=== PATIENT | male | born 1955 | race Caucasian/White ===

== ENCOUNTER → 2016-08-25 | Outpatient (CLI) | payer MEDICARE ==
[~2016-08-25] MED LIST: FENTANYL PF 100 MCG/2ML ONE; MIDAZOLAM 1 MG/ML, 5ML ONE
== END | disposition home or self-care (01) ==
LOC: RAD 09:02
PROVIDERS: ATTEND Physical Medicine & Rehabilitation Pain Medicine
DX: M51.36 Other intervertebral disc degeneration, lumbar region (principal); M12.88 Other specific arthropathies, not elsewhere classified, other specified site; M54.16 Radiculopathy, lumbar region; M48.07 Spinal stenosis, lumbosacral region; N26.1 Atrophy of kidney (terminal)
CPT/HCPCS: 72148; J2250; J3010

== ENCOUNTER → 2016-09-16 | Outpatient (CLI) | payer MEDICARE | END | disposition home or self-care (01) | LOC: RAD 13:15 | PROVIDERS: ATTEND Psychiatry & Neurology Neurology | DX: M50.221 Other cervical disc displacement at C4-C5 level (principal); M50.222 Other cervical disc displacement at C5-C6 level; M50.223 Other cervical disc displacement at C6-C7 level; M50.30 Other cervical disc degeneration, unspecified cervical region; M48.02 Spinal stenosis, cervical region; M47.892 Other spondylosis, cervical region; M25.78 Osteophyte, vertebrae; M54.12 Radiculopathy, cervical region | CPT/HCPCS: 72141; 99156; 99157 ==

== ENCOUNTER 2018-04-04 10:10 | Day surgery (SDC) | payer MEDICARE ==
[2018-04-02 12:07] LABS: BASOPHILS # (AUTO) 0.03 x10^3/uL (0-0.1); BASOPHILS % (AUTO) 1 % (0-1); EOSINOPHILS # (AUTO) 0.23 x10^3/uL (0-0.4); EOSINOPHILS % (AUTO) 5 % (1-7); LYMPHOCYTES # (AUTO) 1.73 x10^3/uL (1-3.4); LYMPHOCYTES % (AUTO) 34 % (22-44); MD NO; MEAN CORPUSCULAR HEMOGLOBIN 33.9 pg (27.5-34.5); MEAN CORPUSCULAR HGB CONC 34.1 g/dL (33.2-36.2); MEAN CORPUSCULAR VOLUME 99.4 fL (81-97); MEAN PLATELET VOLUME 8.4 fL (7.4-10.4); MONOCYTES # (AUTO) 0.67 x10^3/uL (0.2-0.8); MONOCYTES % (AUTO) 13 % (2-9); NEUTROPHILS # (AUTO) 2.36 x10^3/uL (1.8-6.8); NEUTROPHILS % (AUTO) 47 % (42-75); PLATELET COUNT 217 x10^3/uL (130-400); RED BLOOD COUNT 4.34 x10^6/uL (4.38-5.82); RED CELL DISTRIBUTION WIDTH 12.8 % (9.4-14.8)
[2018-04-02 12:07] LABS: MICROSCOPIC NOT IND
[2018-04-02 12:18] LABS: ALANINE AMINOTRANSFERASE 45 U/L (12-78); ALBUMIN 3.9 g/dL (3.4-5.0); ANION GAP 7 mmol/L (5-15); CALCIUM 9.4 mg/dL (8.5-10.1); CHLORIDE 106 mmol/L (98-107); CREATININE 1.54 mg/dL (0.7-1.3)
[2018-04-02 12:20] LABS: ALKALINE PHOSPHATASE 48 U/L (45-117); BILIRUBIN,TOTAL 0.5 mg/dL (0.2-1.0); TOTAL PROTEIN 7.1 g/dL (6.4-8.2)
[~2018-04-04] VITALS: Ht 182.9 cm; Wt 89.0 kg
[~2018-04-04 10:10] MED LIST changes: +ACYC-114 PO; +ALLO300T PO; +AMLO1CAP15 PO; +APIX5TAB PO; +BUPIVACAINE/PF-EPI 0.5% 1:200K ONE; +CYCL-259 PO; +DEXAMETHASONE 4 MG/ML, 1ML ONE; +FENO135C4 PO; +LIDOCAINE-MPF 2% ,5ML ONE; +MIDAZOLAM 1 MG/ML, 2ML ONE; -MIDAZOLAM 1 MG/ML, 5ML ONE; +PROPOFOL 10 MG/ML, 20ML ONE; +SUCCINYLCHOLINE 20 MG/ML, 10ML ONE; +TRAM300T15 PO
[2018-04-04] MEDS ORDERED: LACTATED RINGERS 1,000 ML IV SCH (10:33)
[2018-04-04 10:59] VITALS: BP 142/88
[2018-04-04] MEDS ORDERED: BUPIVACAINE/PF 0.5% ONE (11:22)
[2018-04-04] MEDS ORDERED: CEFAZOLIN 1,000 MG ONE ×2 (12:05)
[2018-04-04] MEDS ORDERED: FENTANYL PF 100 MCG/2ML ONE ×2 (12:20→13:14)
[2018-04-04] MEDS ORDERED: ACETAMINOPHEN 325 MG TABLET PO PRN (12:30)
[2018-04-04] MEDS ORDERED: LABETALOL 5MG/ML, 20ML IV PRN (12:30)
[2018-04-04] MEDS ORDERED: METOPROLOL 1 MG/ML, 5ML IV PRN (12:30)
[2018-04-04] MEDS ORDERED: MEPERIDINE/PF 25MG/0.5ML IVPush PRN (12:30)
[2018-04-04] MEDS ORDERED: hydrALAzine 20 MG/ML, 1ML IV PRN (12:30)
[2018-04-04] MEDS ORDERED: METOCLOPRAMIDE 5 MG/ML, 2ML IV PRN (12:30)
[2018-04-04] MEDS ORDERED: DIAZEPAM 5 MG/ML, 2ML IVPush PRN (12:30)
[2018-04-04] MEDS: FENTANYL PF 100 MCG/2ML IV PRN ×2 (13:20→13:38)
[2018-04-04] MEDS ORDERED: HYDROmorphone 2 MG/ML, 1ML ONE (13:49)
[2018-04-04] MEDS: HYDROmorphone 2 MG/ML, 1ML IVPush PRN ×4 (13:51→14:24)
[2018-04-04] MEDS ORDERED: HYDROmorphone 2MG TABLET PO PRN (14:00)
== END 2018-04-04 16:40 | disposition home or self-care (01) ==
LOC: OUT 10:10
PROVIDERS: ATTEND Urology
DX: N43.2 Other hydrocele (principal); I10 Essential (primary) hypertension; M10.9 Gout, unspecified; E78.5 Hyperlipidemia, unspecified; Z72.89 Other problems related to lifestyle; Z87.891 Personal history of nicotine dependence; Z79.899 Other long term (current) drug therapy; Z88.8 Allergy status to other drugs, medicaments and biological substances; Z86.718 Personal history of other venous thrombosis and embolism
CPT/HCPCS: 36415; 55040; 80053; 81003; 85025; 87086; 93005; J0330; J0690; J1100; J1170; J2250; J2704; J3010; J3490; J7120

== ENCOUNTER → 2018-04-25 | Outpatient (CLI) | payer MEDICARE ==
[~2018-04-25] MED LIST changes: -BUPIVACAINE/PF-EPI 0.5% 1:200K ONE; -DEXAMETHASONE 4 MG/ML, 1ML ONE; -FENTANYL PF 100 MCG/2ML ONE; -LIDOCAINE-MPF 2% ,5ML ONE; -MIDAZOLAM 1 MG/ML, 2ML ONE; -PROPOFOL 10 MG/ML, 20ML ONE; +REGADENOSON 0.4 MG/5 ML SYRINGE ONE; -SUCCINYLCHOLINE 20 MG/ML, 10ML ONE
== END | disposition home or self-care (01) ==
LOC: CFH 06:54
PROVIDERS: ATTEND Internal Medicine Cardiovascular Disease
DX: I10 Essential (primary) hypertension (principal); R55 Syncope and collapse
CPT/HCPCS: 78452; 93017; 93306; A9502; J2785

== ENCOUNTER 2019-05-31 19:23 | Inpatient (IN) | payer SELFPAY ==
[~2019-05-31] VITALS: Ht 182.9 cm; Wt 86.8 kg
[~2019-05-31 19:23] MED LIST changes: -AMLO1CAP15 PO; +AMLO1CAP54 PO; -REGADENOSON 0.4 MG/5 ML SYRINGE ONE
--- NOTE | 2019-05-31 19:25 | NUR ---
pg code cardiac @1923 pg cardiology @192
--- NOTE | 2019-05-31 19:26 | NUR ---
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
[2019-05-31] MEDS ORDERED: BIVALIRUDIN 250 MG ONE ×2 (19:39→19:45)
[2019-05-31] MEDS ORDERED: LIDOCAINE 2%, 20ML ONE (19:39)
[2019-05-31] MEDS ORDERED: HEPARIN 1,000 UNITS/ML, 10ML ONE (19:39)
[2019-05-31] MEDS ORDERED: NITROGLYCERIN 5 MG/ML, 10ML ONE (19:39)
[2019-05-31] MEDS ORDERED: VERAPAMIL 2.5 MG/ML, 2ML ONE (19:39)
[2019-05-31] MEDS ORDERED: FENTANYL PF 100 MCG/2ML ONE ×2 (19:39→19:52)
[2019-05-31] MEDS ORDERED: TICAGRELOR 90 MG TABLET ONE (19:39)
[2019-05-31] MEDS ORDERED: MIDAZOLAM 1 MG/ML, 5ML ONE (19:39)
[2019-05-31] MEDS ORDERED: MORPHINE SULFATE 4 MG/ML, 1ML ONE (19:40)
[2019-05-31 19:42] LABS: BASOPHILS # (AUTO) 0.03 x10^3/uL (0-0.1); BASOPHILS % (AUTO) 0 % (0-1); EOSINOPHILS # (AUTO) 0.19 x10^3/uL (0-0.4); EOSINOPHILS % (AUTO) 3 % (1-7); LYMPHOCYTES # (AUTO) 2.72 x10^3/uL (1-3.4); LYMPHOCYTES % (AUTO) 38 % (22-44); MD NO; MEAN CORPUSCULAR HEMOGLOBIN 34.1 pg (27.5-34.5); MEAN CORPUSCULAR VOLUME 100.2 fL (81-97); MEAN PLATELET VOLUME 8.3 fL (7.4-10.4); MONOCYTES # (AUTO) 0.77 x10^3/uL (0.2-0.8); MONOCYTES % (AUTO) 11 % (2-9); NEUTROPHILS # (AUTO) 3.47 x10^3/uL (1.8-6.8); NEUTROPHILS % (AUTO) 48 % (42-75); PLATELET COUNT 183 x10^3/uL (130-400); RED BLOOD COUNT 4.13 x10^6/uL (4.38-5.82); RED CELL DISTRIBUTION WIDTH 13.5 % (9.4-14.8)
--- NOTE | 2019-05-31 19:46 | NUR ---
MORPHINE 4MG, NTG 0.[address] FREY ORDER. METOPROLOL 5MG IV GIVEN PER DR ZUNIGA.
[2019-05-31 19:47] LABS: INTERNATIONAL NORMALIZED RATIO 0.99 (0.93-1.1); PROTHROMBIN TIME 10.5 Seconds (9.6-11.5)
[2019-05-31 19:52] LABS: TROPONIN I < 0.015 ng/mL (0.000-0.045)
[2019-05-31] MEDS ORDERED: MIDAZOLAM 1 MG/ML, 2ML ONE (19:52)
--- NOTE | 2019-05-31 19:53 | NUR ---
REPORT TO GURMEET ZAPIEN AND EMT TO TRANSPORT.
[2019-05-31] MEDS ORDERED: hydrALAzine 20 MG/ML, 1ML ONE (20:21)
[2019-05-31] MEDS ORDERED: morphine SULFATE 10 MG/ML, 1ML IV PRN (20:30)
[2019-05-31] MEDS ORDERED: ZOLPIDEM 5MG TABLET PO PRN (20:30)
[2019-05-31] MEDS ORDERED: LISINOPRIL 10 MG TABLET PO ONE (20:30)
[2019-05-31] MEDS ORDERED: ONDANSETRON 2MG/ML, 2ML IV PRN (20:30)
[2019-05-31] MEDS ORDERED: LABETALOL 5MG/ML, 20ML IVPush PRN (20:30)
[2019-05-31] MEDS ORDERED: NITROGLYCERIN SINGLE TAB 0.4 MG SL PRN (20:30)
[2019-05-31] MEDS ORDERED: CARVEDILOL 6.25 MG TABLET PO SCH (21:00)
[2019-05-31] MEDS: SODIUM CHLORIDE FLUSH 10ML SYR IVF SCH (21:00)
[2019-05-31] MEDS: ATORVASTATIN 10 MG TABLET PO SCH (21:33)
[2019-05-31] MEDS: CARVEDILOL 6.25 MG TABLET PO SCH (21:37)
[2019-05-31 21:52] LABS: ANION GAP 9 mmol/L (5-15); CALCIUM 8.4 mg/dL (8.5-10.1); CHLORIDE 108 mmol/L (98-107); CHOLESTEROL, TOTAL 135 mg/dL (140-239); CREATININE 1.23 mg/dL (0.7-1.3); TRIGLYCERIDES 121 mg/dL (50-200); VLDL CHOLESTEROL 24 mg/dL (0-25)
[2019-05-31 21:57] LABS: HDL CHOL % 33 % (26-37); HDL CHOLESTEROL (DIRECT) 45 mg/dL (40-60); LDL CHOLESTEROL,CALCULATED 66 mg/dL (54-169); LDL/HDL RATIO 1.5 (0.5-3.0); TROPONIN I 0.535 ng/mL (0.000-0.045)
[2019-05-31] MEDS ORDERED: AMIODARONE 150 MG in DEXTROSE 5% 100 ML IV ONE ×2 (22:30→23:30)
[2019-05-31] MEDS: hydrALAzine 20 MG/ML, 1ML IV PRN (22:40)
[2019-05-31] MEDS ORDERED: FILTER 0.22 MICRON IV ONE (23:00)
[2019-05-31] MEDS ORDERED: RIVAROXABAN 20 MG TABLET PO SCH (23:10)
[2019-05-31 23:43] VITALS: BP 177/103
[2019-06-01] VITALS (7 sets, daily range): BP systolic 138–177; BP diastolic 82–108
[2019-06-01 00:51] LABS: TROPONIN I 0.924 ng/mL (0.000-0.045)
[2019-06-01] MEDS: hydrALAzine 20 MG/ML, 1ML IV PRN ×2 (01:25→05:24)
[2019-06-01] MEDS ORDERED: LABETALOL 20 MG/4 ML IVPush PRN (02:30)
[2019-06-01] MEDS ORDERED: HEPARIN 5,000 UNITS/ML, 1ML SQ SCH (03:00)
[2019-06-01] MEDS: CARVEDILOL 6.25 MG TABLET PO SCH ×2 (06:13→22:50)
[2019-06-01] MEDS: ACETAMINOPHEN 650 MG/20.3 ML UDC PO PRN ×3 (06:13→20:45)
[2019-06-01] MEDS ORDERED: APIXABAN 5 MG TABLET ONE (07:49)
[2019-06-01] MEDS: APIXABAN 5 MG TABLET PO SCH ×2 (07:52→20:46)
[2019-06-01] MEDS ORDERED: DILTIAZEM 125 MG in SODIUM CHLORIDE 0.9% 100 ML IV SCH ×2 (08:30→23:00)
[2019-06-01] MEDS ORDERED: AMLODIPINE 10 MG TAB PO SCH (09:00)
[2019-06-01] MEDS ORDERED: CARVEDILOL 6.25 MG TABLET PO SCH (09:00)
[2019-06-01] MEDS ORDERED: BENAZEPRIL 20 MG TABLET PO SCH (09:00)
[2019-06-01] MEDS: SODIUM CHLORIDE FLUSH 10ML SYR IVF SCH ×2 (09:11→20:44)
[2019-06-01] MEDS ORDERED: AMIT25TA PO (15:13)
[2019-06-01] MEDS ORDERED: ALLO100T30 PO (15:13)
[2019-06-01] MEDS ORDERED: CARV-39 PO (15:13)
[2019-06-01] MEDS ORDERED: BENA40TA3 PO (15:13)
[2019-06-01] MEDS ORDERED: AMITRIPTYLINE 50 MG TABLET ONE (20:39)
[2019-06-01] MEDS: ATORVASTATIN 10 MG TABLET PO SCH (20:44)
[2019-06-01] MEDS ORDERED: AMITRIPTYLINE 25 MG TABLET PO SCH (21:00)
[2019-06-02 00:32] VITALS: BP 124/77
[2019-06-02] MEDS: ACETAMINOPHEN 650 MG/20.3 ML UDC PO PRN (06:43)
[2019-06-02 07:25] VITALS: BP 146/84
[2019-06-02] MEDS ORDERED: DILTIAZEM 125 MG in SODIUM CHLORIDE 0.9% 100 ML IV SCH (08:30)
[2019-06-02] MEDS: SODIUM CHLORIDE FLUSH 10ML SYR IVF SCH (09:00)
[2019-06-02] MEDS ORDERED: DILTIAZEM 240 MG CAP.ER.24H PO SCH (09:00)
[2019-06-02] MEDS: APIXABAN 5 MG TABLET PO SCH (09:00)
[2019-06-02] MEDS: CARVEDILOL 6.25 MG TABLET PO SCH (09:00)
[2019-06-02] MEDS ORDERED: CARV-39 PO (11:52)
[2019-06-02] MEDS ORDERED: DILT240C55 PO (11:52)
== END 2019-06-02 14:05 | disposition home or self-care (01) | DRG 281 ==
LOC: ED 20:20 → 5SO 20:25 → DCLOUNGE 06-02 13:53
PROVIDERS: ADMIT Internal Medicine Cardiovascular Disease; ATTEND Internal Medicine Cardiovascular Disease
PROC: 4A023N7 Measurement of Cardiac Sampling and Pressure, Left Heart, Percutaneous Approach (ICD-10-PCS; principal; 2019-05-31)
PROC: B211YZZ Fluoroscopy of Multiple Coronary Arteries using Other Contrast (ICD-10-PCS; 2019-05-31)
PROC: B215YZZ Fluoroscopy of Left Heart using Other Contrast (ICD-10-PCS; 2019-05-31)
PROC: B310YZZ Fluoroscopy of Thoracic Aorta using Other Contrast (ICD-10-PCS; 2019-05-31)
DX: I21.19 ST elevation (STEMI) myocardial infarction involving other coronary artery of inferior wall (principal); I51.81 Takotsubo syndrome; D68.69 Other thrombophilia; E78.5 Hyperlipidemia, unspecified; I10 Essential (primary) hypertension; I16.0 Hypertensive urgency; I48.91 Unspecified atrial fibrillation; Z79.01 Long term (current) use of anticoagulants; Z82.49 Family history of ischemic heart disease and other diseases of the circulatory system; Z86.718 Personal history of other venous thrombosis and embolism; Z87.891 Personal history of nicotine dependence
CPT/HCPCS: 36415; 93458; 93567; 99285; J3490; 71045; 80047; 80048; 80061; 84484; 85025; 85610; 85730; 93005; 93308; 93321; 93325; 99156; C1769; C1894; G0378; J0583; J1644; J2250; J3010; C1887; J0282; J0360; Q9967

== ENCOUNTER 2019-06-25 15:29 | Outpatient (CLI) | payer MEDICARE ==
[~2019-06-25 15:29] MED LIST changes: +ALLO100T30 PO; +AMIT25TA PO; +BENA40TA3 PO; +CARV-39 PO; +DILT240C55 PO
== END 2019-06-25 23:59 | disposition home or self-care (01) ==
LOC: CFH 15:29
PROVIDERS: ATTEND Family Medicine
DX: Z01.810 Encounter for preprocedural cardiovascular examination (principal)
CPT/HCPCS: 71046

== ENCOUNTER 2019-06-28 07:05 | Day surgery (SDC) | payer MEDICARE ==
[~2019-06-28] VITALS: Ht 182.9 cm; Wt 93.2 kg
[2019-06-28 07:44] VITALS: BP 146/92
[2019-06-28] MEDS ORDERED: TRAM-47 PO (08:05)
[2019-06-28 08:37] LABS: BASOPHILS # (AUTO) 0.04 x10^3/uL (0-0.1); BASOPHILS % (AUTO) 1 % (0-1); EOSINOPHILS # (AUTO) 0.27 x10^3/uL (0-0.4); EOSINOPHILS % (AUTO) 4 % (1-7); LYMPHOCYTES # (AUTO) 2.36 x10^3/uL (1-3.4); LYMPHOCYTES % (AUTO) 36 % (22-44); MD NO; MEAN CORPUSCULAR HEMOGLOBIN 34.3 pg (27.5-34.5); MEAN CORPUSCULAR HGB CONC 33.8 g/dL (33.2-36.2); MEAN CORPUSCULAR VOLUME 101.5 fL (81-97); MEAN PLATELET VOLUME 8.6 fL (7.4-10.4); MONOCYTES # (AUTO) 0.66 x10^3/uL (0.2-0.8); MONOCYTES % (AUTO) 10 % (2-9); NEUTROPHILS # (AUTO) 3.26 x10^3/uL (1.8-6.8); NEUTROPHILS % (AUTO) 50 % (42-75); PLATELET COUNT 180 x10^3/uL (130-400); RED BLOOD COUNT 4.17 x10^6/uL (4.38-5.82); RED CELL DISTRIBUTION WIDTH 13.4 % (9.4-14.8)
[2019-06-28 08:57] LABS: ANION GAP 8 mmol/L (5-15); CALCIUM 8.9 mg/dL (8.5-10.1); CHLORIDE 110 mmol/L (98-107); CREATININE 1.29 mg/dL (0.7-1.3)
[2019-06-28] MEDS ORDERED: PROPOFOL 10 MG/ML, 20ML ONE (09:21)
== END 2019-06-28 10:26 | disposition home or self-care (01) ==
LOC: CACL 07:05
PROVIDERS: ATTEND Internal Medicine Cardiovascular Disease
DX: I48.92 Unspecified atrial flutter (principal); I51.81 Takotsubo syndrome; I48.91 Unspecified atrial fibrillation; I10 Essential (primary) hypertension; E78.2 Mixed hyperlipidemia; M10.9 Gout, unspecified; Z79.01 Long term (current) use of anticoagulants; Z79.891 Long term (current) use of opiate analgesic; Z79.899 Other long term (current) drug therapy; Z88.5 Allergy status to narcotic agent; Z88.8 Allergy status to other drugs, medicaments and biological substances; Z91.048 Other nonmedicinal substance allergy status; Z86.718 Personal history of other venous thrombosis and embolism
CPT/HCPCS: 36415; 80048; 85025; 92960; J2704

== ENCOUNTER 2019-08-23 08:10 | Day surgery (SDC) | payer MEDICARE ==
[~2019-08-23] VITALS: Ht 185.4 cm; Wt 93.0 kg
[~2019-08-23 08:10] MED LIST changes: +TRAM-47 PO
[2019-08-23] MEDS ORDERED: SODIUM CHLORIDE 0.9% 500 ML IV PRN (08:31)
[2019-08-23] MEDS ORDERED: PROPOFOL 10 MG/ML, 20ML ONE (08:34)
[2019-08-23 08:43] VITALS: BP 146/91
[2019-08-23] MEDS ORDERED: FLEC50TA25 PO (08:51)
[2019-08-23] MEDS ORDERED: DILT-8 PO (08:51)
== END 2019-08-23 11:33 | disposition home or self-care (01) ==
LOC: CACL 08:10
PROVIDERS: ATTEND Internal Medicine Cardiovascular Disease
DX: I48.91 Unspecified atrial fibrillation (principal); I10 Essential (primary) hypertension; I51.81 Takotsubo syndrome; I42.9 Cardiomyopathy, unspecified; Z79.01 Long term (current) use of anticoagulants; Z79.891 Long term (current) use of opiate analgesic; Z79.899 Other long term (current) drug therapy; Z88.5 Allergy status to narcotic agent; Z88.8 Allergy status to other drugs, medicaments and biological substances; Z86.718 Personal history of other venous thrombosis and embolism
CPT/HCPCS: 92960; J2704